=== PATIENT | male | born 1960 | race Caucasian/White ===

== ENCOUNTER → 2017-08-07 | Outpatient (CLI) | payer BC ==
[~2017-08-07] MED LIST: ASCORBIC ACID500 MG PO; ATHLETE S FOOT TOP; Calcium Carbonate PO; DIATRIZOATE MEGL/DIATRIZOA SOD 30 ML BTL PO ONE; DOXYCYCLINE HY100 MG PO; IOPAMIDOL 370 MG/ML 200 ML INFUS..BTL INJ ONE; MAGNESIUM OXID400 MG PO; MEDICOOL'S DIA1 EAC1; Multivitamins/Minerals PO; PROTONIX40 MG/ML PO; SODIUM CHLORIDE 0.9% 50ML 50 ML ONE; ULTRAM50 MG PO; ZINC SULFATE220 M1 PO
--- NOTE | 2017-08-07 15:21 | Diagnostic Imaging Report ---
PROCEDURE: CT ABDOMEN AND PELVIS WITH CONTRAST TECHNIQUE: The abdomen and pelvis were scanned utilizing a multidetector helical scanner from the diaphragm to the lesser trochanter after the IV administration of 100 cc of Isovue 370 and the oral administration of Gastrografin. Coronal and sagittal multiplanar reformations were obtained. COMPARISON: None. INDICATIONS: OBSTRUCTION FINDINGS: LOWER THORAX: Normal. HEPATOBILIARY: Diffuse hepatic steatosis. No focal hepatic lesions. No biliary ductal dilatation. SPLEEN: No splenomegaly. PANCREAS: No focal masses or ductal dilatation. ADRENALS: No adrenal nodules. KIDNEYS/URETERS: No hydronephrosis, stones, or solid mass lesions. PELVIC ORGANS/BLADDER: Unremarkable. PERITONEUM / RETROPERITONEUM: No free air or fluid. LYMPH NODES: No lymphadenopathy. VESSELS: Unremarkable. GI TRACT: No distention or wall thickening. Scattered sigmoid diverticula without evidence of diverticulitis. BONES AND SOFT TISSUES: No suspicious lytic or sclerotic bony lesions. Bilateral fat containing inguinal hernias, left greater than right. IMPRESSION: 1. Normal obstruction. 2. Diffuse hepatic steatosis. 3. Sigmoid diverticulosis without diverticulitis. 4. Bilateral fat containing inguinal hernia, left greater than right. Dictated by: Bill Dey M.D. on 08/07/2017 at 15:20 Electronically approved by: Bill Dey M.D. on 08/07/2017 at 15:20
== END ==
LOC: CT 12:19
PROVIDERS: ATTEND Internal Medicine Infectious Disease
DX: K63.9 Disease of intestine, unspecified (principal)
CPT/HCPCS: 74177; Q9967